=== PATIENT | female | born 1945 | race Caucasian/White ===

== ENCOUNTER → 2017-04-05 | Day surgery (SDC) | payer OTHER, MEDICARE ==
[~2017-04-05] VITALS: Ht 162.6 cm; Wt 49.9 kg
[~2017-04-05] MED LIST: ASPIRIN325 M2 PO; QUINAPRIL HCL10 M1 PO; SOTALOL80 M1 PO
--- NOTE | 2017-04-05 08:38 | Operative Report ---
Operative/Inv Procedure Report Surgery Date: 04/05/17 Name of Procedure: Navigational bronchoscopy with brushings biopsies and bronchoalveolar lavage Pre-Operative Diagnosis: Left lower lobe lung mass with consolidation Post-Operative Diagnosis: Same Estimated Blood Loss: scant Surgeon/E Mail System Administrator: MD HUBMERTO Enriquez MD,REBECCA Vo JR Anesthesia: general endotracheal tube Operative/Procedure Note Note: After placing monitoring lines and induction of general anesthesia a survey bronchoscopy was done. In the left lower lobe there was found to be significant tenacious inspissated mucus. This was cleared and there were no endobronchial lesions noted. There just continued to be a run of purulent mucus coming from the lower lobe segmental bronchi and this was all cleared with suction and irrigation. The navigational system was then engaged and registered. The guider catheter was advanced to the basilar posterior consolidative mass seen on CT scan. Brushings and direct forceps biopsies were done of this area and sent for permanent histology. A bronchoalveolar lavage was then done of this area and the fluid was sent for cytology and for multiple cultures. At the end the lower lobe airway was cleared completely of all visible inspissated mucus with patent airways. The patient tolerated the procedure well and brought to the recovery room extubated in stable condition. CC: WILL FARNSWORTH,ASHLEY
--- NOTE | 2017-04-05 09:35 | RADIOLOGY REPORT ---
EXAMINATION: XR PORTABLE CHEST CLINICAL INFORMATION: Status post navigational bronchoscopy COMPARISON: 03/13/2017 TECHNIQUE: Portable frontal view of the chest was obtained. FINDINGS: The right lung base is not fully included on the image. There is a region of airspace opacity in the retrocardiac left lower lobe. The visualized right lung is clear. No evidence of pneumothorax. Trace left pleural effusion may be present. No overt pulmonary edema. The cardiomediastinal contour is unremarkable. Fusion hardware is partially visualized in the lower thoracic and lumbar spine. IMPRESSION: Retrocardiac left basilar opacity and possible trace pleural effusion. No pneumothorax identified.
--- NOTE | 2017-04-05 15:38 | RADIOLOGY REPORT ---
EXAMINATION:\H\ \N\C-ARM FLUOROSCOPY ASSISTANCE AT THE TIME OF LEFT LOWER LOBAR BRONCHOSCOPY AND BIOPSY IN THE OR CLINICAL INFORMATION: Left lower lobar mass/airspace disease. COMPARISON: Whole-body PET CT scan done on 03/13/[address] of the chest done on 02/26/2017. TECHNIQUE: C-arm fluoroscopy assistance is provided at the time of left lower lobar bronchoscopy and biopsy in the OR. 5 spot radiographs were obtained at the time of the procedure. FLUOROSCOPY TIME: 3.1 minutes. FINDINGS: Multiple C-arm fluoroscopy spot radiographs were obtained at the time of the procedure. Full procedural details will be dictated by Dr. Dawn. IMPRESSION: C-arm fluoroscopy assistance is provided at the time of the left lower lobar bronchoscopy and biopsy. Full procedural details will be dictated by Dr. Dawn.
== END ==
LOC: STS 01:20
DX: R91.8 Other nonspecific abnormal finding of lung field (principal); R05 Cough; J98.9 Respiratory disorder, unspecified; R06.02 Shortness of breath; Z87.891 Personal history of nicotine dependence; I48.91 Unspecified atrial fibrillation; Z86.718 Personal history of other venous thrombosis and embolism; I10 Essential (primary) hypertension
CPT/HCPCS: 87070; 87075; 87184; 87205; 87147; 88305; C9399; J2250